=== PATIENT | female | born 1965 | race Caucasian/White ===

== ENCOUNTER 2019-04-10 10:04 | Emergency (ER) | payer MEDICAID ==
[~2019-04-10] VITALS: Ht 142.2 cm; Wt 58.6 kg
[2019-04-10] MEDS ORDERED: OMEP40CA6 PO (11:05)
[2019-04-10 11:16] VITALS: BP 140/78
== END 2019-04-10 11:17 | disposition home or self-care (01) ==
LOC: ED 11:10
DX: T78.49XA Other allergy, initial encounter (principal); F17.200 Nicotine dependence, unspecified, uncomplicated; Z90.710 Acquired absence of both cervix and uterus; X58.XXXA Exposure to other specified factors, initial encounter
CPT/HCPCS: 99283; J7512